=== PATIENT | female | born 1955 | race Caucasian/White ===

== ENCOUNTER 2020-06-13 14:26 | Emergency (ER) | payer OTHER ==
[2020-06-13] MEDS ORDERED: Ketorolac Tromethamine 30 MG/ML VIAL ONE (15:12)
--- NOTE | 2020-06-13 15:19 | RAD ---
XR Ankle Rt 3 View STANDARD INDICATION: Right ankle pain after fall COMPARISON: None. FINDINGS: Bones: Intact. Ankle mortise: Symmetric. Talar Dome: Intact. Subtalar joint: Normal. Visualized hindfoot: Normal. Periarticular soft tissues: Normal. IMPRESSION: 1. No acute fracture or subluxation demonstrated.
== END 2020-06-13 15:49 | disposition home or self-care (01) ==
LOC: ERS 14:26
DX: S93.401A Sprain of unspecified ligament of right ankle, initial encounter (principal); E11.9 Type 2 diabetes mellitus without complications; I10 Essential (primary) hypertension; F41.9 Anxiety disorder, unspecified; Z79.84 Long term (current) use of oral hypoglycemic drugs; Z79.899 Other long term (current) drug therapy; W01.0XXA Fall on same level from slipping, tripping and stumbling without subsequent striking against object, initial encounter
CPT/HCPCS: 96372; J1885

== ENCOUNTER 2023-03-23 10:51 | Outpatient (CLI) | payer MEDICARE | END 2023-03-23 10:52 | disposition home or self-care (01) | LOC: BICMAMMO 10:51 | PROVIDERS: ATTEND Nurse Practitioner Family | DX: Z12.31 Encounter for screening mammogram for malignant neoplasm of breast (principal); N64.89 Other specified disorders of breast | CPT/HCPCS: 77063; 77067 ==

== ENCOUNTER → 2023-04-23 | Day surgery (SDC) | payer MEDICARE | LOC: BICULT 12:11 | PROVIDERS: ATTEND Nurse Practitioner Family | DX: R92.8 Other abnormal and inconclusive findings on diagnostic imaging of breast (principal) | CPT/HCPCS: 19083; 88305; 88341; 88342 ==